=== PATIENT | male | born 1965 | race Caucasian/White ===

== ENCOUNTER → 2024-05-08 14:03 | Outpatient (REF) | payer OTHER, SELFPAY | LOC: RCS 14:03 | PROVIDERS: ATTENDING PHYSICIAN Internal Medicine Cardiovascular Disease; FAMILY PHYSICIAN Family Medicine | DX: I42.9 Cardiomyopathy, unspecified (principal); Z95.810 Presence of automatic (implantable) cardiac defibrillator | CPT/HCPCS: 93306 ==